=== PATIENT | female | born 2000 | race American Indian/Alaskan Native ===

== ENCOUNTER 2020-05-23 15:58 | Emergency (ER) | payer MEDICAID ==
[2020-05-23] MEDS ORDERED: TETRACAINE 0.5% OPHTH SOLN 4ML OU ONE (16:15)
[2020-05-23] MEDS ORDERED: TETRACAINE 0.5% OPHTH SOLN 4ML ONE (16:16)
[2020-05-23] MEDS ORDERED: HYDROcodone/ACETAMINOPHEN 7.5-325MG TAB PO ONE (16:38)
[2020-05-23] MEDS ORDERED: ATROPINE 1% OU NR (17:00)
--- NOTE | 2020-05-23 17:21 | Emergency Department Report ---
ED Eye Problem HPI - General Chief complaint: Eye Problems Stated complaint: EYE PAIN Time Seen by Provider: 05/23/20 16:11 Source: patient Mode of arrival: Stretcher Limitations: No Limitations - History of Present Illness Initial comments: Patient is a 19-year-old F [place] female who wears contacts and is complaining of pain in her left eye. Patient states she took her contacts out last night and this morning woke up unable to see well. She states light in either eye is extremely painful to the left eye. She has some redness to the left eye as well. She denies fever chills cough cold congestion or eye discharge Patient admitted that the contacts that she had on were colored contacts that she bought [id number] - Related Data Previous Rx's Medication Instructions Recorded Last Taken Type Gentamicin 0.3% Ophth Soln 2 drops OP Q4H #1 bottle 05/23/20 Unknown Rx HYDROcodone/APAP 5-325 [Mobile 1 each PO Q6HR PRN #14 tablet 05/23/20 Unknown Rx 5/325] Ibuprofen [Motrin 800 MG tab] 800 mg PO Q8HR PRN #10 tablet 05/23/20 Unknown Rx Allergies Allergy/AdvReac Type Severity Reaction Status Date / Time No Known Allergies Allergy Unverified 05/23/20 16:00 ED Review of Systems ROS: Stated complaint: EYE PAIN Other details as noted in HPI Comment: All other systems reviewed and negative ED Past Medical Hx - Past Medical History Previous Medical History?: No - Surgical History Past Surgical History?: No - Medications Home Medications: Home Medications Medication Instructions Recorded Confirmed Last Taken Type Gentamicin 0.3% Ophth Soln 2 drops OP Q4H #1 bottle 05/23/20 Unknown Rx HYDROcodone/APAP 5-325 [Mobile 1 each PO Q6HR PRN #14 tablet 05/23/20 Unknown Rx 5/325] Ibuprofen [Motrin 800 MG tab] 800 mg PO Q8HR PRN #10 tablet 05/23/20 Unknown Rx ED Physical Exam - General Limitations: No Limitations General appearance: alert, in distress - Head Head exam: Present: atraumatic, normocephalic - Eye Eye exam: Present: normal appearance, other (Shining light into the right eye elicits pain response in the left) - Expanded Eye Exam Expanded Eyelids: Normal Inspection: Left Pupils: Regular, Round: Bilateral Sclera/Conjunctival: Injection: Left Anterior chamber: Normal Inspection: Bilateral Posterior chamber: Deferred: Bilateral - ENT ENT exam: Present: mucous membranes moist - Neck Neck exam: Present: normal inspection - Respiratory Respiratory exam: Present: normal lung sounds bilaterally. Absent: respiratory distress - Cardiovascular Cardiovascular Exam: Present: regular rate, normal rhythm. Absent: systolic murmur, diastolic murmur, rubs, gallop - GI/Abdominal GI/Abdominal exam: Present: soft, normal bowel sounds - Extremities Exam Extremities exam: Present: normal inspection - Back Exam Back exam: Present: normal inspection - Neurological Exam Neurological exam: Present: alert, oriented X3 - Psychiatric Psychiatric exam: Present: normal affect, normal mood - Skin Skin exam: Present: warm, dry, intact, normal color. Absent: rash ED Medical Decision Making - Medical Decision Making Patient's were dilated which did help with her pain. Patient likely with conjunctivitis with iritis. Patient will be given atropine drops to take twice a day for the next 2 days will be started on antibiotic drops as well. Critical care attestation.: If time is entered above; I have spent that time in minutes in the direct care of this critically ill patient, excluding procedure time. ED Disposition Clinical Impression: Acute iritis of left eye Conjunctivitis Qualifiers: Conjunctivitis type: acute Acute conjunctivitis type: unspecified Laterality: unspecified laterality Qualified Code(s): H10.30 - Unspecified acute c onjunctivitis, unspecified eye Disposition: DC-01 TO HOME OR SELFCARE Is pt being admited?: No Does the pt Need Aspirin: No Instructions: Iritis (ED), Conjunctivitis (ED) Additional Instructions: Please use the atropine drops that were given in the emergency department twice daily for the next 2 days for comfort Referrals: TARIQ SALINAS MD [Staff Physician] - 3-5 Days Time of Disposition: 17:23
[2020-05-23 18:19] VITALS: BP 138/75
== END 2020-05-23 18:20 | disposition home or self-care (01) ==
LOC: ED 15:58
DX: H10.9 Unspecified conjunctivitis (principal); H20.00 Unspecified acute and subacute iridocyclitis; Z79.1 Long term (current) use of non-steroidal anti-inflammatories (NSAID); Z79.899 Other long term (current) drug therapy